=== PATIENT | male | born 1985 | race Caucasian/White ===

== ENCOUNTER 2017-07-01 15:49 | Emergency (ER) | payer OTHER ==
[2017-07-01] MEDS ORDERED: Sodium Chloride 0.9% 10 ML Syringe FLUSH PRN (15:56)
[2017-07-01] MEDS ORDERED: Sodium Chloride 0.9% 1,000 ML IV SCH (16:00)
[2017-07-01 16:40] LABS: ACETAMINOPHEN 0 ug/mL (10-30)
--- NOTE | 2017-07-01 17:11 | EDM.PDOCBH ---
ED HPI GENERAL MEDICAL PROBLEM - General Chief Complaint: Drug or Alcohol Abuse Stated Complaint: [facility] Time Seen by Provider: 07/01/17 15:56 Source of Information: Reports: EMS, Police History Limitations: Reports: Altered Mental Status - History of Present Illness INITIAL COMMENTS - FREE TEXT/NARRATIVE: EMS and police were called to a local address for a well fair check. When they got there, the tread mill was on and the freezer door was open and there was a mess in the house. They found the patient in the position in his bath tub. He would not talk. A unknown substance was found at the scene. The patient walked down the stairs and stopped. He stared off into space and would not talk. EMS called to see if they could have police assist them or use some haldol. He then sat in a stair chair and went into the ambulance. When he arrived her, he would not talk to me. Onset: Unknown/Unsure Severity: Moderate Improves with: Reports: None Worsens with: Reports: None Associated Symptoms: Reports: No Other Symptoms - Related Data Allergies Allergy/AdvReac Type Severity Reaction Status Date / Time No Known Allergies Allergy Verified 07/01/17 15:57 Home Meds: Home Meds . [Unable to Verify Home Med List] 07/01/17 [History] Social & Family History - Tobacco Use Smoking Status *Q: Unknown Ever Smoked ED ROS GENERAL - Review of Systems Review Of Systems: Unable To Obtain ED EXAM, BEHAVIORAL HEALTH - Physical Exam Exam: See Below Exam Limited By: Altered Mental Status General Appearance: Alert Ears: Normal External Exam Nose: Normal Inspection Head: Atraumatic, Normocephalic Neck: Normal Inspection Respiratory/Chest: No Respiratory Distress, Lungs Clear, Normal Breath Sounds Cardiovascular: Regular Rate, Rhythm, No Edema, No Murmur GI/Abdominal: Soft, Non-Tender, No Organomegaly, No Mass Back Exam: Normal Inspection Extremities: Normal Inspection EKG INTERPRETATION EKG Date: 07/01/17 Time: 16:32 Rhythm: Other (sinus tachycardia) Rate (Beats/Min): 124 Holman: Normal P-Wave: Present QRS: Normal ST-T: Normal QT: Prolonged COURSE, BEHAVIORAL HEALTH COMP - Course Vital Signs: Last Vital Signs Temp 97.2 F 07/01/17 15:55 Pulse 126 H 07/01/17 15:55 Resp 20 07/01/17 15:55 BP 144/79 H 07/01/17 15:55 Pulse Ox 98 07/01/17 15:55 Orders, Labs, Meds: Active Orders 24 hr Category Date Time Status Cardiac Monitoring [RC] . DIRECTED Care 07/01/17 15:56 Active EKG Documentation Completion [RC] STAT Care 07/01/17 15:57 Active Peripheral IV Care [RC] . DIRECTED Care 07/01/17 15:57 Active Sodium Chloride 0.9% [Normal Saline] 1,000 ml Med 07/01/17 16:00 Active IV .BOLUS Sodium Chloride 0.9% [Saline Flush] Med 07/01/17 15:56 Active 10 ml FLUSH ASDIRECTED PRN Peripheral IV Insertion Adult [OM.PC] Stat Oth 07/01/17 15:56 Ordered Medication Orders Sodium Chloride (Normal Saline) 1,000 mls @ 1,000 mls/hr IV .BOLUS PAULETTE Last Admin: 07/01/17 16:15 Dose: 1,000 mls/hr Sodium Chloride (Saline Flush) 10 ml FLUSH ASDIRECTED PRN PRN Reason: Keep Vein Open Last Admin: 07/01/17 16:15 Dose: 10 ml Laboratory Tests 07/01/17 07/01/17 07/01/17 Range/Units 16:05 16:05 16:05 WBC 17.66 H (4.23-9.07) K/mm3 RBC 5.13 (4.63-6.08) M/mm3 Hgb 16.0 (13.7-17.5) gm/L Hct 46.9 (40.1-51.0) % MCV 91.4 (79.0-92.2) fl MCH 31.2 (25.7-32.2) pg MCHC 34.1 (32.2-35.5) g/dl RDW Std Deviation 42.9 (35.1-43.9) fL Plt Count 254 (163-337) K/mm3 MPV 10.5 (9.4-12.3) fl Neut % (Auto) 91.2 H (34.0-67.9) % Lymph % (Auto) 4.2 L (21.8-53.1) % Bibb % (Auto) 4.0 L (5.3-12.2) % Eos % (Auto) 0.1 L (0.8-7.0) Baso % (Auto) 0.2 (0.1-1.2) % Neut # (Auto) 16.10 H (1.78-5.38) K/mm3 Lymph # (Auto) 0.75 L (1.32-3.57) K/mm3 Bibb # (Auto) 0.71 (0.30-0.82) K/mm3 Eos # (Auto) 0.01 L (0.04-0.54) K/mm3 Baso # (Auto) 0.04 (0.01-0.08) K/mm3 Manual Slide Review Abnormal smear Sodium 139 (136-145) mEq/L Potassium 3.6 (3.5-5.1) mEq/L Chloride 104 (98-107) mEq/L Carbon Dioxide 20 L (21-32) mEq/L Anion Gap 18.6 H (5-15) BUN 29 H (7-18) mg/dL Creatinine 1.5 H (0.7-1.3) mg/dL Est Cr Clr Drug Dosing TNP Estimated GFR (MDRD) 54 (>60) mL/min BUN/Creatinine Ratio 19.3 H (14-18) Glucose 200 H (74-106) mg/dL Calcium 9.6 (8.5-10.1) mg/dL Total Bilirubin 0.6 (0.2-1.0) mg/dL AST 30 (15-37) U/L ALT 31 (16-63) U/L Alkaline Phosphatase 62 (46-116) U/L Total Protein 8.3 H (6.4-8.2) g/dl Albumin 4.8 (3.4-5.0) g/dl Globulin 3.5 gm/dL Albumin/Globulin Ratio 1.4 (1-2) Salicylates 1.3 L (2.8-20) mg/dL Urine Opiates Screen (NEGATIVE) Ur Buprenorphine Scrn (NEGATIVE) Ur Oxycodone Screen (NEGATIVE) Urine Methadone Screen (NEGATIVE) Ur Propoxyphene Screen (NEGATIVE) Acetaminophen 0 L (10-30) ug/mL Ur Barbiturates Screen (NEGATIVE) Ur Tricyclics Screen (NEGATIVE) Ur Phencyclidine Scrn (NEGATIVE) Ur Amphetamine Screen (NEGATIVE) U Methamphetamines Scrn (NEGATIVE) U Benzodiazepines Scrn (NEGATIVE) U Cocaine Metab Screen (NEGATIVE) U Marijuana (THC) Screen (NEGATIVE) Ethyl Alcohol 0.00 (0.00) gm% 07/01/17 Range/Units 16:26 WBC (4.23-9.07) K/mm3 RBC (4.63-6.08) M/mm3 Hgb (13.7-17.5) gm/L Hct (40.1-51.0) % MCV (79.0-92.2) fl MCH (25.7-32.2) pg MCHC (32.2-35.5) g/dl RDW Std Deviation (35.1-43.9) fL Plt Count (163-337) K/mm3 MPV (9.4-12.3) fl Neut % (Auto) (34.0-67.9) % Lymph % (Auto) (21.8-53.1) % Bibb % (Auto) (5.3-12.2) % Eos % (Auto) (0.8-7.0) Baso % (Auto) (0.1-1.2) % Neut # (Auto) (1.78-5.38) K/mm3 Lymph # (Auto) (1.32-3.57) K/mm3 Bibb # (Auto) (0.30-0.82) K/mm3 Eos # (Auto) (0.04-0.54) K/mm3 Baso # (Auto) (0.01-0.08) K/mm3 Manual Slide Review Sodium (136-145) mEq/L Potassium (3.5-5.1) mEq/L Chloride (98-107) mEq/L Carbon Dioxide (21-32) mEq/L Anion Gap (5-15) BUN (7-18) mg/dL Creatinine (0.7-1.3) mg/dL Est Cr Clr Drug Dosing Estimated GFR (MDRD) (>60) mL/min BUN/Creatinine Ratio (14-18) Glucose (74-106) mg/dL Calcium (8.5-10.1) mg/dL Total Bilirubin (0.2-1.0) mg/dL AST (15-37) U/L ALT (16-63) U/L Alkaline Phosphatase (46-116) U/L Total Protein (6.4-8.2) g/dl Albumin (3.4-5.0) g/dl Globulin gm/dL Albumin/Globulin Ratio (1-2) Salicylates (2.8-20) mg/dL Urine Opiates Screen Negative (NEGATIVE) Ur Buprenorphine Scrn Negative (NEGATIVE) Ur Oxycodone Screen Negative (NEGATIVE) Urine Methadone Screen Negative (NEGATIVE) Ur Propoxyphene Screen Negative (NEGATIVE) Acetaminophen (10-30) ug/mL Ur Barbiturates Screen Negative (NEGATIVE) Ur Tricyclics Screen Negative (NEGATIVE) Ur Phencyclidine Scrn Negative (NEGATIVE) Ur Amphetamine Screen Negative (NEGATIVE) U Methamphetamines Scrn Negative (NEGATIVE) U Benzodiazepines Scrn Negative (NEGATIVE) U Cocaine Metab Screen Negative (NEGATIVE) U Marijuana (THC) Screen Negative (NEGATIVE) Ethyl Alcohol (0.00) gm% Medications Generic Name Dose Route Start Last Admin Trade Name Freq PRN Reason Stop Dose Admin Sodium Chloride 1,000 mls @ 1,000 mls/hr 07/01/17 16:00 07/01/17 16:15 Normal Saline IV 1,000 mls/hr .BOLUS PAULETTE Administration Sodium Chloride 10 ml 07/01/17 15:56 07/01/17 16:15 Saline Flush FLUSH 10 ml ASDIRECTED PRN Administration Keep Vein Open Re-Assessment/Re-Exam: I ordered an IV NS at 125mL/hr, labs, UDS and EKG. His EKG shows a sinus tachycardia. His WBC was elevated at 17.06. His anion gap was elevated at 18.6. His creatinine was elevated at 1.5. His glucose is elevated at 200. He woke up and he admits now to taking acid. He is alert and orientated. I will discharge him home. Departure - Departure Time of Disposition: 17:20 Disposition: Home, Self-Care 01 Condition: Good Clinical Impression: LSD reaction - Discharge Information Referrals: Mandie Guillen PA-C [Physician Hopper Attendant] - Additional Instructions: Do not take drugs. Your are dehydrated. Drink plenty of water. Please return if you are worse. - My Orders Last 24 Hours: My Active Orders 07/01/17 15:56 Cardiac Monitoring [RC] . DIRECTED Sodium Chloride 0.9% [Saline Flush] 10 ml FLUSH ASDIRECTED PRN Peripheral IV Insertion Adult [OM.PC] Stat 07/01/17 15:57 EKG Documentation Completion [RC] STAT Peripheral IV Care [RC] . DIRECTED 07/01/17 16:00 Sodium Chloride 0.9% [Normal Saline] 1,000 ml IV .BOLUS - Assessment/Plan Last 24 Hours: My Active Orders 07/01/17 15:56 Cardiac Monitoring [RC] . DIRECTED Sodium Chloride 0.9% [Saline Flush] 10 ml FLUSH ASDIRECTED PRN Peripheral IV Insertion Adult [OM.PC] Stat 07/01/17 15:57 EKG Documentation Completion [RC] STAT Peripheral IV Care [RC] . DIRECTED 07/01/17 16:00 Sodium Chloride 0.9% [Normal Saline] 1,000 ml IV .BOLUS
== END 2017-07-01 17:39 | disposition home or self-care (01) ==
LOC: JD.ED 15:49
DX: F16.10 Hallucinogen abuse, uncomplicated (principal)
CPT/HCPCS: 36415; 80053; 80306; 85025; 93005; 96360; 99284; G0480; J7040; J7050; P9612

== ENCOUNTER 2020-01-05 01:52 | Emergency (ER) | payer BC, OTHER ==
[2020-01-05] MEDS ORDERED: Alum Hydrox/Mag Hydrox/Simeth 30 ML, Lidocaine 2% 15 ML PO STA ×2 (02:27)
--- NOTE | 2020-01-05 02:32 | EDM.PDOC ---
ED HPI GENERAL MEDICAL PROBLEM - General Chief Complaint: Chest Pain Stated Complaint: CHEST PAIN Time Seen by Provider: 01/05/20 02:06 Source of Information: Reports: Patient History Limitations: Reports: No Limitations - History of Present Illness INITIAL COMMENTS - FREE TEXT/NARRATIVE: Mr. Stevenson is a very pleasant 34-year-old gentleman who now presents the ED stating that he developed stabbing retrosternal chest pain while watching television, around 23:00 this evening. He states that the pain radiates down his right upper extremity, all the way to the wrist, all that has since improved. His pain is made worse if he takes a deep breath, but he denies having dyspnea. No associated nausea, diaphoresis, or sense of impending doom. He states that he had similar, although brief symptoms Friday night, as well, 01/03/2020. The patient states that he has had similar symptoms, that usually last only a few minutes, a few times over the past 5 years, approximately. He states that he runs approximately 70 miles per week, and has never developed chest pain while running. The patient did not take any [id number]-[id number] or home remedies prior to coming to the ED. Here in the ED, the patient is found to be hemodynamically stable, afebrile, saturating 100% on room air. Other than his presenting symptoms, the patient denies recent fever, chills, sore throat, ear pain, nasal or sinus congestion, cough, dyspnea, chest pain, palpitations, nausea, vomiting, constipation, diarrhea, abdominal pain, urinary symptoms, recent weight gain or weight loss, recent bloody bowel movements or black bowel movements, recent joint aches, headaches, or rashes. The patient does not have a PCP. Middle Anterior Chest Pain Score (Numeric/FACES): 6 - Related Data Allergies Allergy/AdvReac Type Severity Reaction Status Date / Time No Known Allergies Allergy Verified 01/05/20 02:11 Home Meds: Home Meds . [No Known Home Meds] 06/16/18 [History] Past Medical History HEENT History: Reports: Impaired Vision Musculoskeletal History: Reports: Fracture (nose, cervical spine) - Past Surgical History HEENT Surgical History: Reports: Naso-Sinus Surgery (rhinoplasty) Neurological Surgical History: Reports: C-Spine (anterior fusion Jan 2008) Social & Family History - Tobacco Use Smoking Status *Q: Never Smoker Second Hand Smoke Exposure: No - Caffeine Use Caffeine Use: Reports: Coffee - Alcohol Use Alcohol Use History: Yes Alcohol Use Frequency: Socially (occasionally to excess) - Recreational Drug Use Recreational Drug Use: Yes Drug Use in Last 12 Months: No Recreational Drug Type: Reports: LSD (Acid) (last took 2009), Marijuana/Hashish (last smoked 2008) - Living Situation & Occupation Living situation: Reports: Single, Alone Occupation: Employed (pick up driver) ED ROS GENERAL - Review of Systems Review Of Systems: Comprehensive ROS is negative, except as noted in HPI. ED EXAM, GENERAL - Physical Exam Exam: See Below Exam Limited By: No Limitations General Appearance: Alert, WD/WN, No Apparent Distress Eye Exam: Bilateral Eye: EOMI, Normal Inspection Ears: Normal External Exam, Hearing Grossly Normal Nose: Normal Inspection Throat/Mouth: Normal Inspection, Normal Lips, Normal Voice, No Airway Compromise Head: Atraumatic, Normocephalic Neck: Normal Inspection, Full Range of Motion Respiratory/Chest: No Respiratory Distress, Lungs Clear, Normal Breath Sounds, No Accessory Muscle Use, Chest Non-Tender (however, pain in chest is increased with palpation of the epigastrium) Cardiovascular: Normal Peripheral Pulses, Regular Rate, Rhythm, No Edema, No Gallop, No JVD, No Murmur, No Rub Peripheral Pulses: 3+: Radial (L), Radial (R) GI/Abdominal: Normal Bowel Sounds, Soft, Non-Tender (the epigastrium itself is not tender), No Organomegaly, No Distention, No Abnormal Bruit, No Mass (Male) Exam: Deferred Rectal (Males) Exam: Deferred Back Exam: Normal Inspection, Full Range of Motion, NT Extremities: Normal Inspection, Normal Range of Motion, No Pedal Edema, Normal Capillary Refill Neurological: Alert, Oriented, Normal Cognition, No Motor/Sensory Deficits Psychiatric: Normal Affect Skin Exam: Warm, Dry, Intact, Normal Color, No Rash Course - Vital Signs Last Recorded V/S: Last Vital Signs Temp 36.4 C 01/05/20 02:07 Pulse 77 01/05/20 02:07 Resp 20 01/05/20 02:07 BP 122/77 01/05/20 02:07 Pulse Ox 100 01/05/20 02:07 - Orders/Labs/Meds Meds: Medications Discontinued Medications Generic Name Dose Route Start Last Admin Trade Name Susana PRN Reason Stop Dose Admin Al Hydroxide/Mg Hydroxide 30 0 ml 01/05/20 02:27 01/05/20 02:55 ml/ Lidocaine HCl 15 ml PO 01/05/20 02:28 45 ml ONETIME STA Administration Famotidine 40 mg 01/05/20 02:46 01/05/20 02:53 Pepcid PO 01/05/20 02:47 40 mg ONETIME STA Administration - Re-Assessments/Exams Free Text/Narrative Re-Assessment/Exam: 01/05/20 02:27 As above, the patient developed stabbing retrosternal chest pain around 23:00 tonight, while watching television. His pain is made worse with deep breaths, and he also noted that the pain in his chest was worse when I palpated his epigastrium. Both of these findings are consistent with GERD, while the rapid onset of his symptoms, onset of his symptoms while at rest, no limitation of exertion by chest pain, the description of his symptoms as a pain, not a discomfort, and the worsening of his symptoms with deep inspirations or palpation of his epigastrium, are all inconsistent with cardiac ischemia. I have ordered a GI cocktail, to see if that modifies his symptoms. 01/05/20 02:46 The patient reports some improvement in his symptoms following a GI cocktail. I explained that his history, physical exam, and now his improvement of symptoms with a GI cocktail all suggest that GERD is the cause of his symptoms. I offered to perform additional testing to rule out other conditions, such as a pulmonary embolus, cardiac ischemia, pneumothorax, etc., however, the patient declined my offer, accepting that it is likely GERD. For today's purposes, the patient will be started on oral famotidine, and I will recommend that he continue to take [id number] famotidine once or twice a day. I will also refer him to the clinic where he can establish a PCP, and arrange for an EGD, in the event that his symptoms persist. Departure - Departure Time of Disposition: 02:48 Disposition: Home, Self-Care 01 Condition: Good Clinical Impression: GERD (gastroesophageal reflux disease) - Discharge Information *PRESCRIPTION DRUG MONITORING PROGRAM REVIEWED*: Not Applicable *COPY OF PRESCRIPTION DRUG MONITORING REPORT IN PATIENT BRENNAN: Not Applicable Instructions: Gastroesophageal Reflux Disease, Adult, [id number] Referrals: Mona Decker NP [Nurse Practitioner] - Forms: ED Department Discharge Additional Instructions: You were seen in the emergency room after developing sudden-onset midline chest pain, made worse with deep breaths. Your symptoms improved somewhat after you drank a GI cocktail. Further evaluation, including blood work, a chest x-ray, and an ECG, were offered, but declined. Based on your history, physical exam, and the effects of the GI cocktail, you are most likely suffering from acid reflux, also known as GERD. You have been started on the antacid medicine famotidine (Pepcid). Famotidine is available [id number], and generic famotidine is just as good as brand name Pepcid. We recommend that you take 1 tablet of famotidine either once or twice a day, on a regular basis. We recommend that you follow-up with Mona Decker NP, or one of the other providers in the clinic, to establish a PCP, but also to arrange for an EGD (scope of the stomach) in the event that your symptoms do not improve. If any other problems, please do not hesitate to return to the ER. Sepsis Event Note (ED) - Evaluation Sepsis Screening Result: No Definite Risk - Focused Exam Vital Signs: Vital Signs Temp Pulse Resp BP Pulse Ox 01/05/20 02:07 36.4 C 77 20 122/77 100
[2020-01-05] MEDS ORDERED: Famotidine 20 MG Tab PO STA (02:46)
== END 2020-01-05 03:01 | disposition home or self-care (01) ==
LOC: JD.ED 01:52
DX: K21.9 Gastro-esophageal reflux disease without esophagitis (principal)
CPT/HCPCS: 99284; A9270; 99282